=== PATIENT | female | born 1955 | race Native Hawaiian/Other Pacific Islander ===

== ENCOUNTER 2016-10-10 08:44 | Outpatient (CLI) | payer OTHER ==
[~2016-10-10] VITALS: Ht 165.1 cm; Wt 50.3 kg
[~2016-10-10 08:44] MED LIST: ALPR0.2566 PO; BUPR150T PO; FLECTOR1.3 % TD; VESICARE5 MG PO
[2016-10-10 09:15] VITALS: BP 109/71; TEMP 97.9
== END 2016-10-10 10:10 | disposition home or self-care (01) ==
LOC: INF 08:44
DX: M81.8 Other osteoporosis without current pathological fracture (principal); M48.02 Spinal stenosis, cervical region
CPT/HCPCS: 36415; 82310; 96372; J0897

== ENCOUNTER 2016-11-24 09:05 | Outpatient (CLI) | payer OTHER | END 2016-11-24 19:11 | disposition home or self-care (01) | LOC: RAD 09:05 | DX: M81.0 Age-related osteoporosis without current pathological fracture (principal) ==

== ENCOUNTER 2020-05-13 10:44 | Outpatient (CLI) | payer OTHER | END 2020-05-13 19:30 | disposition home or self-care (01) | LOC: MAMMO 10:44 | DX: Z12.31 Encounter for screening mammogram for malignant neoplasm of breast (principal) ==

== ENCOUNTER 2022-02-23 13:01 | Outpatient (CLI) | payer OTHER | END 2022-02-23 19:06 | disposition home or self-care (01) | LOC: US 13:01 | PROVIDERS: ATTEND Nurse Practitioner | DX: E03.9 Hypothyroidism, unspecified (principal) ==

== ENCOUNTER 2022-02-28 10:30 | Outpatient (CLI) | payer OTHER | END 2022-02-28 19:10 | disposition home or self-care (01) | LOC: RAD 10:30 → MAMMO 11:00 → RAD 19:10 | PROVIDERS: ATTEND Nurse Practitioner | DX: N64.4 Mastodynia (principal); M81.8 Other osteoporosis without current pathological fracture | CPT/HCPCS: G0279 ==

== ENCOUNTER 2022-12-04 12:30 | Outpatient (CLI) | payer OTHER | END 2022-12-04 20:42 | disposition home or self-care (01) | LOC: RAD 12:30 | PROVIDERS: ATTEND Physician Assistant | DX: M25.512 Pain in left shoulder (principal) ==

== ENCOUNTER 2022-12-04 15:51 | Emergency (ER) | payer OTHER ==
[~2022-12-04] VITALS: Ht 165.1 cm; Wt 52.2 kg
[2022-12-04 17:09] VITALS: BP 151/67; TEMP 98.5
== END 2022-12-04 17:09 | disposition home or self-care (01) ==
LOC: ED 15:51
DX: T88.7XXA Unspecified adverse effect of drug or medicament, initial encounter (principal)
CPT/HCPCS: 99283